=== PATIENT | male | born 1965 | race Caucasian/White ===

== ENCOUNTER 2024-06-11 18:16 | Emergency (ER) | payer OTHER, SELFPAY ==
[2024-06-11 18:40] VITALS: BP 131/84; PULSE 108; TEMP 37.2; O2SAT 98; BMI 35.2
--- NOTE | 2024-06-11 20:41 | ED.SKABFB1 ---
HPI - Skin/Abscess/Foreign Bdy General Chief complaint: Skin/Abscess/Foreign Body Stated complaint: Upper Injury Time Seen by Provider: 06/11/24 20:28 Source: patient Mode of arrival: walk-in Limitations: no limitations History of Present Illness HPI narrative: This 59-year-old male presents for evaluation of right elbow pain, redness and swelling. The patient states that 4 weeks ago he fell in his barn while getting hay. He had a small puncture wound overlying the right elbow area. It has not bothered him until 2 days ago when it started becoming red and swollen and tender. He texted his physician who called in Keflex and Bactrim for him. He has taken 2 doses of these antibiotics but his symptoms have not resolved. He denies any fever or chills. He has no body aches. He denies any chest pain or shortness of breath. Related Data Home Medications ?Medication ?Instructions ?Recorded ?Confirmed cephalexin 500 mg capsule 500 mg PO BID 06/11/24 06/11/24 esomeprazole magnesium 40 mg 40 mg PO DAILY 06/11/24 06/11/24 capsule,delayed release rosuvastatin 20 mg tablet 20 mg PO DAILY 06/11/24 06/11/24 sulfamethoxazole 800 1 tab PO BID 06/11/24 06/11/24 mg-trimethoprim 160 mg tablet tadalafil 5 mg tablet 5 mg PO DAILY PRN sexual activity 06/11/24 06/11/24 Allergies Allergy/AdvReac Type Severity Reaction Status Date / Time No Known Drug Allergies Allergy Verified 06/11/24 18:40 Review of Systems ROS Status of ROS 10 or more systems reviewed and unremarkable except as noted in history and below Exam Narrative Exam Narrative: Vital signs and Nursing Notes reviewed: Patient is afebrile, tachycardic with a pulse of 108, he has a normal blood pressure, he is not hypoxic with pulse ox of 98% on room air General: Awake, alert, oriented, no acute distress, lying comfortably on the stretcher HEENT: Normocephalic atraumatic, mucous membranes are moist and pink, eyes are clear, normal conjunctiva, vision is grossly intact Chest: Lungs are clear to auscultation with good air entry, there is no wheezing rhonchi or rales appreciated no accessory muscle use, patient is speaking in complete sentences-no chest wall tenderness to palpation CVS: Regular rate and rhythm S1-S2, no murmurs rubs or gallops, pulses are brisk and equal bilaterally Extremities: There is a small scab overlying the right elbow with approximately 6 cm of circumferential erythema. Overlying the olecranon is certain degree of fluctuance. There is no drainage appreciated. Skin: Normal in appearance without rash,pallor, petechiae or purpura Neuro: No focal deficits Constitutional Vital Signs, click to edit/add: Last Vital Signs Temp 98.9 F 06/11/24 18:40 Pulse 108 H 06/11/24 18:40 Resp 18 06/11/24 18:40 BP 131/84 06/11/24 18:40 Pulse Ox 98 06/11/24 18:40 O2 Del Method Room Air 06/11/24 18:40 Course Vital Signs Vital signs: Vital Signs Temperature 98.9 F 06/11/24 18:40 Pulse Rate 108 H 06/11/24 18:40 Respiratory Rate 18 06/11/24 18:40 Blood Pressure 131/84 06/11/24 18:40 Pulse Oximetry 98 06/11/24 18:40 Oxygen Delivery Method Room Air 06/11/24 18:40 Temperature 98.9 F 06/11/24 18:40 Pulse Rate 108 H 06/11/24 18:40 Respiratory Rate 18 06/11/24 18:40 Blood Pressure 131/84 06/11/24 18:40 Pulse Oximetry 98 06/11/24 18:40 Oxygen Delivery Method Room Air 06/11/24 18:40 MDM - Skin/Abscess/Foreign Bdy MDM Narrative Medical decision making narrative: This 59-year-old male nondiabetic presents for evaluation of redness pain and swelling in his right elbow area. He struck this area approximately 4 weeks ago in his barn. He had a small puncture wound at that time that closed up. Several days ago it started becoming red and swollen. He called his doctor and was placed on Keflex and Bactrim. He had taken 2 doses of this prior to arrival. He has not had any fevers or chills. He states the pain in his arm goes up into his humerus. He has full range of motion. The area is red and warm with fluid in the bursa that is palpable. There is a small scab over it that the patient's states was draining. He is not septic or toxic. He is afebrile. An IV was placed and he was medicated with 900 mg of IV clindamycin. A workup including CBC with differential, comprehensive metabolic profile, lactic acid, sed rate, CRP and blood cultures was ordered as well as an x-ray of the extremity. He has a normal white count and hemoglobin. Sed rate is normal at 4. Electrolyte panel is normal with the elevation in his creatinine at 1.38. Lactic acid is normal. CRP is elevated at 1.2. X-ray of the extremity was reviewed by myself and does not show any acute findings. The results of these studies and the patient's presentation was discussed with Dr. Montgomery, orthopedics. He agrees with my management and will see the patient as an outpatient in his office. The patient was agreeable to seeing Dr. Blackmon in his [place] office on Tuesday between 730 and 9 AM. In the meantime he was told to be n.p.o. if his symptoms worsened over that time or return to the emergency department. He was medicated emergency department with a dose of [place] for pain and Zofran to prevent nausea in addition to his IV clindamycin. He was given 2 [place] to take at home until he could get prescriptions filled for [place], Zofran, Motrin and clindamycin. He was encouraged to soak the extremity in warm Epsom salt water which he states he had been doing at the recommendation of his family physician. Clinically suspect that he has a inflamed bursitis. I do not think this is a septic joint in light of his clinical condition and labs. This was discussed with the patient and his who verbalized understanding. Lab Data Labs: Lab Results 06/11/24 Range/Units 20:35 WBC 6.4 (4.0-11.0) 10^3/uL RBC 4.99 (4.70-6.10) 10^6/uL Hgb 15.2 (14.0-18.0) g/dL Hct 42.5 (42.0-54.0) % MCV 85.2 (80.0-94.0) fL MCH 30.5 (25.9-34.0) pg MCHC 35.8 H (29.9-35.2) g/dL RDW 11.9 (11.0-15.0) % Plt Count 204 (150-450) 10^3/uL MPV 9.5 (9.5-13.5) fL Neut % (Auto) 63.3 (43.0-75.0) % Lymph % (Auto) 21.8 (20.5-60.0) % Lamb % (Auto) 9.9 (1.7-12.0) % Eos % (Auto) 4.2 (0.9-7.0) % Baso % (Auto) 0.6 (0.2-2.0) % Neut # (Auto) 4.1 (1.4-6.5) 10^3/uL Lymph # (Auto) 1.4 (1.2-3.8) 10^3/uL Lamb # (Auto) 0.6 (0.3-0.8) 10^3/uL Eos # (Auto) 0.3 (0.0-0.7) 10^3/uL Baso # (Auto) 0.0 (0.0-0.1) 10^3/uL Abs Immat Gran (auto) 0.01 (0.00-0.03) 10^3/uL Imm/Tot Granulo (auto) 0.2 (0.0-0.5) % ESR 4 (<=20) mm/hr Sodium 137 (136-145) mmol/L Potassium 3.7 (3.5-5.1) mmol/L Chloride 102 (98-107) mmol/L Carbon Dioxide 23.8 (21.0-32.0) mmol/L Anion Gap 14.9 BUN 16.0 (7.0-18.0) mg/dL Creatinine 1.38 H (0.70-1.30) mg/dL Est GFR ( Amer) >60 (>=60 mL/min/1.73m^2) Est GFR (Non-Af Amer) 53 L (>=60 mL/min/1.73m^2) BUN/Creatinine Ratio 11.6 Glucose 167 H (74-106) mg/dL Lactate 1.9 (0.4-2.0) mmol/L Calcium 9.4 (8.5-10.1) mg/dL Total Bilirubin 0.6 (0.2-1.0) mg/dL AST 34 (15-37) U/L ALT 82 H (16-63) U/L Alkaline Phosphatase 36 L (46-116) U/L C-Reactive Protein 1.22 H (<=0.50) mg/dL Total Protein 7.3 (6.4-8.2) g/dL Albumin 4.1 (3.4-5.0) g/dL Globulin 3.2 g/dL Albumin/Globulin Ratio 1.3 Discharge Plan Discharge Chief Complaint: Skin/Abscess/Foreign Body Clinical Impression: Elbow pain, right, Bursitis disorder Patient Disposition: Home, Self-Care Time of Disposition Decision: 22:17 Prescriptions / Home Meds: No Action esomeprazole magnesium 40 mg capsule,delayed release(DR/EC) 40 mg PO DAILY rosuvastatin 20 mg tablet 20 mg PO DAILY tadalafil 5 mg tablet 5 mg PO DAILY PRN (Reason: sexual activity) sulfamethoxazole-trimethoprim 800-160 mg tablet 1 tab PO BID Rx Instructions: Started yesterday cephalexin 500 mg capsule 500 mg PO BID Rx Instructions: Started yesterday Print Language: Haitian Instructions: Elbow Bursitis (ED) Referrals: Ab Rodas DO [Primary Care Provider] - 1 week Glynn Montgomery MD [Physician] - 1 week (Dr Montgomery will see you in his [place] office between 7:30 -9am. Address is [address] [place] [address] [place] [facility] [phone]) Discharge Date/Time: 06/11/24 22:44
[2024-06-11] MEDS: HYDROCODONE/ACET 5-325 MG TABLET 1 TAB PO (21:15)
[2024-06-11] MEDS: ONDANSETRON PF 4 MG/2 ML VIAL IV (21:16)
[2024-06-11] MEDS: CLINDAMYCIN PHOSPHATE/D5W 900 MG/50 ML PREMIX 100 MG IV (21:21)
[2024-06-11 21:26] LABS: Basophils Percent Auto 0.6 % (0.2-2.0); Eosinophils Absolute Auto 0.3 10^3/uL (0.0-0.7); Eosinophils Percent Auto 4.2 % (0.9-7.0); Hematocrit 42.5 % (42.0-54.0); Hemoglobin 15.2 g/dL (14.0-18.0); Immature Granulocytes Abs Auto 0.01 10^3/uL (0.00-0.03); Immature Granulocytes Pct Auto 0.2 % (0.0-0.5); Lymphocytes Absolute Auto 1.4 10^3/uL (1.2-3.8); Lymphocytes Percent Auto 21.8 % (20.5-60.0); Mean Corpuscular HGB Conc 35.8 g/dL (29.9-35.2); Mean Corpuscular Hemoglobin 30.5 pg (25.9-34.0); Mean Corpuscular Volume 85.2 fL (80.0-94.0); Mean Platelet Volume 9.5 fL (9.5-13.5); Monocytes Absolute Auto 0.6 10^3/uL (0.3-0.8); Monocytes Percent Auto 9.9 % (1.7-12.0); Neutrophils Absolute Auto 4.1 10^3/uL (1.4-6.5); Neutrophils Percent Auto 63.3 % (43.0-75.0); Platelet Count 204 10^3/uL (150-450); Red Blood Count 4.99 10^6/uL (4.70-6.10); Red Cell Distribution Width 11.9 % (11.0-15.0); White Blood Count 6.4 10^3/uL (4.0-11.0)
[2024-06-11 21:34] LABS: Erythrocyte Sedimentation Rate 4 mm/hr (<=20)
[2024-06-11 21:44] LABS: Lactate/Lactic Acid 1.9 mmol/L (0.4-2.0)
[2024-06-11 21:51] LABS: Alanine Aminotransferase 82 U/L (16-63); Albumin Globulin Ratio 1.3; Albumin Level 4.1 g/dL (3.4-5.0); Alkaline Phosphatase 36 U/L (46-116); Anion Gap 14.9; Aspartate Amino Transferase 34 U/L (15-37); BUN Creatinine Ratio 11.6; Bilirubin Total 0.6 mg/dL (0.2-1.0); C Reactive Protein 1.22 mg/dL (<=0.50); Calcium 9.4 mg/dL (8.5-10.1); Carbon Dioxide 23.8 mmol/L (21.0-32.0); Chloride 102 mmol/L (98-107); Estimated GFR (African America >60 (>=60 mL/min/1.73m^2); Estimated GFR (Non-African Ame 53 (>=60 mL/min/1.73m^2); Globulin 3.2 g/dL; Glucose 167 mg/dL (74-106); Potassium 3.7 mmol/L (3.5-5.1); Sodium 137 mmol/L (136-145); Total Protein 7.3 g/dL (6.4-8.2)
[2024-06-11] MEDS: HYDROCODONE/ACET 5-325 MG TABLET 2 TAB PO (22:38)
== END 2024-06-11 22:44 | disposition home or self-care (01) ==
PROVIDERS: Emergency Provider Emergency Medicine; PCP Family Medicine
DX: M71.521 Other bursitis, not elsewhere classified, right elbow (principal); M25.521 Pain in right elbow
CPT/HCPCS: 36415; 73080; 80053; 83605; 85025; 85652; 86140; 87040; 96365; 96375; 99285; J0736; J2405